=== PATIENT | male | born 1985 | race African-American/Black ===

== ENCOUNTER 2016-07-15 16:50 | Emergency (ER) | payer OTHER ==
[2016-07-15 17:00] VITALS: TEMP 98.6; BMI 44.9
--- NOTE | 2016-07-15 18:37 | PDOC ---
History of Present Illness - General Chief Complaint: Blood Sugar Problem Stated Complaint: BLOOD SUGAR PROBLEM Time Seen by Provider: 07/15/16 18:26 History Source: Patient - History of Present Illness Timing/Duration: other Associated Symptoms: denies: chest pain, fever/chills, headaches, nausea/ vomiting, shortness of breath, weakness Past History - Past Medical History Allergies/Adverse Reactions: Allergies Allergy/AdvReac Type Severity Reaction Status Date / Time No Known Allergies Allergy Verified 07/15/16 16:55 Home Medications: Ambulatory Orders Metformin HCl 1,000 mg PO BID 06/23/15 Ibuprofen [Motrin -] 80 mg PO TID #30 tablet 09/30/15 Oxycodone HCl/Acetaminophen [Percocet 10-325 mg Tablet] 1 each PO QID #20 tablet MDD 4 09/30/15 Diabetes: Yes (NIDDM) - Immunization History Immunization Up to Date: Yes - Psycho/Social/Smoking Cessation Hx Anxiety: No Suicidal Ideation: No Smoking Status: Yes Smoking History: Current every day smoker Have you smoked in the past 12 months: Yes Number of Cigarettes Smoked Daily: 10 Information on smoking cessation initiated: Yes 'Breaking Loose' booklet given: 07/15/16 Hx Alcohol Use: No Drug/Substance Use Hx: No Substance Use Type: Alcohol Review of Systems - Review of Systems Constitutional: No: Chills, Fever HEENTM: No: Blurred Vision Respiratory: No: Cough, Shortness of Breath Cardiac (ROS): No: Chest Pain ABD/GI: No: Constipated, Diarrhea, Nausea, Vomiting, Abdominal cramping : No: Dysuria *Physical Exam - Vital Signs Last Vital Signs Temp Pulse Resp BP Pulse Ox 98.6 F 82 18 152/83 100 07/15/16 16:56 07/15/16 16:56 07/15/16 16:56 07/15/16 16:56 07/15/16 16:56 - Physical Exam General Appearance: Yes: Appropriately Dressed. No: Apparent Distress HEENT: positive: Normal Voice Neck: positive: Supple Respiratory/Chest: positive: Lungs Clear, Normal Breath Sounds. negative: Respiratory Distress Cardiovascular: positive: Regular Rate, S1, S2 Gastrointestinal/Abdominal: positive: Soft. negative: Tender Integumentary: positive: Dry, Warm Neurologic: positive: Fully Oriented, Alert, Normal Mood/Affect ED Treatment Course - LABORATORY CBC & Chemistry Diagram: 07/15/16 18:40 07/15/16 19:16 Medical Decision Making - Medical Decision Making 07/15/16 18:30 30-year-old male, morbidly obese, ise-[id number] diabetic, non-compliant with medications, mostly secondary to insurance issues, went to see his outside doctor today and had refill of metformin sent to pharmacy but states he was told his blood sugar was in the 400s and sent to the ED. Patient does report of polyuria for unspecified time. Denies any other acute medical complaints at this time see exam Hyperglycemia Non-compliant w/ oral hypoglycemic Stable and well lalitha in ED -labs -IVF -?insulin -reassess 07/15/16 18:38 *DC/Admit/Observation/Transfer Diagnosis at time of Disposition: Hyperglycemia - Referrals Referrals: Stephanie Amato [Primary Care Provider] - - Patient Instructions Printed Discharge Instructions: DI for Hyperglycemia -- Adult Additional Instructions: Please follow up with your primary care provider and be sure to slat pickler your Metformin prescription that was sent in by your PCP. If you experience dizziness, vomiting, abdominal pain, difficulty breathing, weakness, confusion, or any new or worsening symptoms, please return to the ER immediately.
[2016-07-15] MEDS ORDERED: SODIUM CHLORIDE 1,000 ML IV STA (18:55)
[2016-07-15 19:01] LABS: BASOPHIL 0.8 % (0-2.0); MCH 27.4 pg (25.7-33.7); MCHC 32.5 g/dl (32.0-35.9); MEAN CELL VOLUME 84.2 fl (80-96); MEAN PLT VOLUME 8.6 fl (7.5-11.1); NEUTROPHILS 48.2 % (42.8-82.8); PLATELET COUNT 337 K/MM3 (134-434); RDW 13.8 % (11.9-15.9); WHITE BLOOD COUNT 10.3 K/mm3 (4.0-10.0)
[2016-07-15 19:08] LABS: URINE APPEARANCE CLEAR; URINE BILIRUBIN NEGATIVE (NEGATIVE); URINE COLOR LTYELLOW; URINE GLUCOSE (UA) 3+ (NEGATIVE); URINE KETONE NEGATIVE (NEGATIVE); URINE LEUK ESTERASE NEGATIVE (NEGATIVE); URINE NITRITE NEGATIVE (NEGATIVE); URINE UROBILINOGEN NEGATIVE E.U./dl (0.2-1.0)
--- NOTE | 2016-07-15 19:13 | PDOC ---
*Physical Exam - Vital Signs Last Vital Signs Temp Pulse Resp BP Pulse Ox 98.6 F 82 18 152/83 100 07/15/16 16:56 07/15/16 16:56 07/15/16 16:56 07/15/16 16:56 07/15/16 16:56 - Physical Exam Comments: 07/15/16 19:13 Sign-out received from outgoing ER provider Floresita. Pt interviewed and examined. Ancillary studies reviewed. Awaiting labs. 07/15/16 19:55 glucose 373, UA at baseline. labs otherwise unremarkable. -8 units Novolog 07/15/16 20:39 At this time the patient is asymptomatic and ready to go home. Will discharge to home with close follow up with PMD. Advised patient to pickle maker prescription for Metformin sent in by PMD. Advised patient of signs and symptoms for return to ED. Patient verbalized understanding and agrees to plan. 07/15/16 20:41 ED Treatment Course - LABORATORY CBC & Chemistry Diagram: 07/15/16 18:40 07/15/16 19:16 - ADDITIONAL ORDERS Additional order review: 07/15/16 18:40 RBC 5.20 MCV 84.2 MCHC 32.5 RDW 13.8 MPV 8.6 Neutrophils % 48.2 Lymphocytes % 41.8 H Monocytes % 7.2 Eosinophils % 2.0 Basophils % 0.8 *DC/Admit/Observation/Transfer Diagnosis at time of Disposition: Hyperglycemia - Discharge Dispostion Admit: No - Referrals Referrals: Stephanie Amato [Primary Care Provider] - - Patient Instructions Printed Discharge Instructions: DI for Hyperglycemia -- Adult Additional Instructions: Please follow up with your primary care provider and be sure to pickle maker your Metformin prescription that was sent in by your PCP. If you experience dizziness, vomiting, abdominal pain, difficulty breathing, weakness, confusion, or any new or worsening symptoms, please return to the ER immediately.
[2016-07-15 19:26] LABS: URINE BLOOD 2+ (NEGATIVE); URINE PROTEIN 3+ (NEGATIVE)
[2016-07-15 19:41] LABS: URINE RBC 9 /hpf (0-3); URINE WBC 3 /hpf (3-5)
[2016-07-15 19:54] LABS: ALBUMIN 3.9 g/dl (3.4-5.0); ALK PHOS 117 U/L (45-117); ANION GAP 7 (8-16); BILIRUBIN,TOTAL 0.6 mg/dL (0.2-1.0); CALCIUM 9.2 mg/dL (8.5-10.1); CO2 30 mmol/L (21-32); CREATININE 0.9 mg/dL (0.7-1.3); SGOT/AST 13 U/L (15-37); SGPT/ALT 29 U/L (12-78); TOT PROT 7.4 g/dl (6.4-8.2)
[2016-07-15 19:56] LABS: GLUCOSE,RANDOM 373 mg/dL (74-106)
[2016-07-15] MEDS ORDERED: INSULIN (NOVOLOG) ASPART 100 UNITS/ML 10ML VIAL SQ ONE (19:57)
[2016-07-15] MEDS ORDERED: INSULIN (NOVOLOG) ASPART 100 UNITS/ML 10ML VIAL ONE (20:12)
[2016-07-15 20:37] VITALS: BP 131/79; PULSE 86
== END 2016-07-15 20:42 | disposition home or self-care (01) ==
LOC: JER 16:50
DX: E11.65 Type 2 diabetes mellitus with hyperglycemia (principal); Z79.84 Long term (current) use of oral hypoglycemic drugs; Z91.14 Patient's other noncompliance with medication regimen
CPT/HCPCS: 36415; 80053; 81003; 81015; 85025; 99283-25

== ENCOUNTER 2016-12-19 02:58 | Emergency (ER) | payer OTHER ==
[2016-12-19 03:59] VITALS: BP 150/80; PULSE 106; TEMP 98.7; BMI 42.3
--- NOTE | 2016-12-19 05:07 | PDOC ---
History of Present Illness - General Chief Complaint: Pain, Acute Stated Complaint: RIGHT KNEE PROBLEM History Source: Patient, Family Exam Limitations: No Limitations - History of Present Illness Initial Comments: 12/19/16 05:02 Patient is a 31 year old male with h/o right knee injury c/o right knee pain s/ p fall tonight. Patient is asleep and unable to wake up to give a history. GENERAL/CONSTITUTIONAL: [No fever or chills. No weakness. No weight change.] HEAD, EYES, EARS, NOSE AND THROAT: [No change in vision. No ear pain or discharge. No sore throat.] CARDIOVASCULAR: [No chest pain or shortness of breath.] RESPIRATORY: [No cough, wheezing, or hemoptysis.] GASTROINTESTINAL: [No nausea, vomiting, diarrhea or constipation. No rectal bleeding.] GENITOURINARY: [No dysuria, frequency, or change in urination.] MUSCULOSKELETAL: (+) joint or muscle swelling or pain. No neck or back pain.] SKIN AND BREASTS: [No rash or easy bruising.] NEUROLOGIC: [No headache, vertigo, loss of consciousness, or loss of sensation.] PSYCHIATRIC: [No depression or anxiety.] ENDOCRINE: [No increased thirst. No abnormal weight change.] HEMATOLOGIC/LYMPHATIC: [No anemia, easy bleeding, or history of blood clots.] ALLERGIC/IMMUNOLOGIC: [No hives or skin allergy. No latex allergy.] GENERAL: [The patient is awake, alert, and fully oriented, in no acute distress. ] HEAD: [Normal with no signs of trauma.] EYES: [Pupils equal, round and reactive to light, extraocular movements intact, sclera anicteric, conjunctiva clear.] ENT: [Ears normal, nares patent, oropharynx clear without exudates. Moist mucous membranes.] NECK: [Normal range of motion, supple without lymphadenopathy, JVD, or masses.] LUNGS: [Breath sounds equal, clear to auscultation bilaterally. No wheezes, and no crackles.] HEART: [Regular rate and rhythm, normal S1 and S2 without murmur, rub.] ABDOMEN: [Soft, nontender, normoactive bowel sounds. No guarding, no rebound. No masses.] EXTREMITIES:decreased range of motion to right knee, no edema. No clubbing or cyanosis. No cords, erythema, or tenderness.] NEUROLOGICAL: [Cranial nerves II through XII grossly intact. Normal speech, normal gait.] PSYCH: [Normal mood, normal affect.] SKIN: [Warm, Dry, normal turgor, no rashes or lesions noted.] Past History - Past Medical History Allergies/Adverse Reactions: Allergies Allergy/AdvReac Type Severity Reaction Status Date / Time No Known Allergies Allergy Verified 12/19/16 03:57 Home Medications: Ambulatory Orders Metformin HCl 1,000 mg PO BID 06/23/15 Ibuprofen [Motrin -] 80 mg PO TID #30 tablet 09/30/15 Oxycodone HCl/Acetaminophen [Percocet 10-325 mg Tablet] 1 each PO QID #20 tablet MDD 4 09/30/15 Diabetes: Yes (NIDDM) - Immunization History Immunization Up to Date: Yes - Psycho/Social/Smoking Cessation Hx Anxiety: No Suicidal Ideation: No Smoking Status: Yes Smoking History: Never smoked Have you smoked in the past 12 months: No Number of Cigarettes Smoked Daily: 10 Information on smoking cessation initiated: No 'Breaking Loose' booklet given: 07/15/16 Hx Alcohol Use: No Drug/Substance Use Hx: No Substance Use Type: Alcohol *Physical Exam - Vital Signs Last Vital Signs Temp Pulse Resp BP Pulse Ox 98.7 F 106 H 16 150/80 100 12/19/16 03:57 12/19/16 03:57 12/19/16 03:57 12/19/16 03:57 12/19/16 03:57 Medical Decision Making - Medical Decision Making 12/19/16 05:05 Patient is a 31 year old male with h/o of right knee pain c/o xray right knee 12/19/16 07:23 calcified tendon noted will inst to take motrin and follow up with ortho I discussed the physical exam findings, ancillary test results and final diagnoses with the patient. I answered all of the patient's questions. The patient was satisfied with the care received and felt comfortable with the discharge plan and treatment plan. The Patient agrees to follow up with the primary care physician within 24-72 hours. *DC/Admit/Observation/Transfer Diagnosis at time of Disposition: Knee pain Qualifiers: Chronicity: acute Laterality: right Qualified Code(s): M25.561 - Pain in right knee - Discharge Dispostion Disposition: HOME Condition at time of disposition: Stable - Referrals Referrals: Stephanie Amato [Primary Care Provider] - Cedrick Bagley MD [Staff Physician] - - Patient Instructions Printed Discharge Instructions: DI for Knee Pain Additional Instructions: Your Discharge Instructions: You must call primary care physician within 24 hours to arrange follow-up. Return to the Emergency Department with any new, persistent or worsening symptoms, for fever, chills, SOB, dizziness or any other concerning changes that may occur. Follow-up with orthopedics
--- NOTE | 2016-12-19 11:02 | PDOC ---
Patient Follow-up (Call Back) - Post ED Follow - Up Chief Complaint: Chronic pain Condition at time of discharge: Stable Disposition at time of original discharge: HOME Reason for Call Back: Radiology (Lateral subluxation of patella noted on xray. Message left for patient on cell and home phones.)
== END 2016-12-19 07:54 | disposition home or self-care (01) ==
LOC: JER 02:58
DX: M25.561 Pain in right knee (principal); W18.39XA Other fall on same level, initial encounter; Y93.89 Activity, other specified; Y92.89 Other specified places as the place of occurrence of the external cause; Y99.8 Other external cause status
CPT/HCPCS: 73562-TC-RT; 99283-25

== ENCOUNTER 2017-09-27 07:10 | Day surgery (SDC) | payer OTHER ==
[2017-09-26 09:21] VITALS: BMI 41.5
[2017-09-27 07:27] VITALS: BP 151/84; TEMP 98.3
[2017-09-27 07:36] VITALS: PULSE 105
[2017-09-27] MEDS ORDERED: BUPIVACAINE HCL/PF 0.5% (5MG/ML) 10 ML VIAL ONE ×2 (07:36→08:01)
[2017-09-27] MEDS ORDERED: DEXAMETHASONE SOD PHOSPHATE/PF 10 MG/ML SDV ONE (07:37)
[2017-09-27] MEDS ORDERED: MIDAZOLAM HCL 2 MG/2 ML SINGLE DOSE VIAL ONE ×2 (07:41)
[2017-09-27] MEDS ORDERED: SODIUM CHLORIDE 0.9% P/F 10 ML VIAL IJ ONE (07:41)
[2017-09-27] MEDS ORDERED: LIDOCAINE 1%/EPI 1:100000 (20 ML MULTI DOSE VIAL) ONE (08:01)
--- NOTE | 2017-09-27 08:36 | HP ---
Satellite [facility] - Chief Complaint Chief Complaint: right knee pain/instability - Past Medical History Allergies/Adverse Reactions: Allergies Allergy/AdvReac Type Severity Reaction Status Date / Time No Known Allergies Allergy Verified 09/26/17 09:26 - Current Medications Current Medications: Home Medications Medication Instructions Recorded Metformin HCl 1,000 mg PO BID 06/23/15 Multivitamin [One Daily] 1 each PO BID 09/26/17 Oxycodone HCl/Acetaminophen 1 - 2 tab PO Q6H #50 tab MDD 8 09/27/17 [Percocet 5-325 mg Tablet] Satellite Physical Exam - Physical Examination Vital Signs: Vital Signs Period Temp Pulse Resp BP Sys/Cabrera Pulse Ox Last 24 Hr 98.3 F 105 20 151/84 95 General Appearance: Well Nourished, Well Developed, Alert & Oriented x3 ENT: Clear Lung: Normal air movement Heart: Regular rate & rhythm Extremities: Other (right knee- + swelling, + ttp, decr rom, + otilio, + ant draw, + pivot, nvi MRI + acl tear, mmt) Neurological: Intact, Alert, Oriented Satellite Impression/Plan - Impression/Plan Impression: right knee acl tear, mmt Operative Procedure: right knee arthroscopy with acl reconstruction using graftlink allograft, possible MMR Date to be Performed: 09/27/17
== END 2017-09-27 08:17 | disposition home or self-care (01) ==
LOC: JASU-SURG 07:10
PROVIDERS: ATTEND Orthopaedic Surgery
PROC: 0SJD4ZZ Inspection of Left Knee Joint, Percutaneous Endoscopic Approach (ICD-10-PCS; principal; 2017-09-27)
DX: Z53.8 Procedure and treatment not carried out for other reasons (principal)
CPT/HCPCS: 82962

== ENCOUNTER 2018-01-17 06:18 | Day surgery (SDC) | payer OTHER ==
[2018-01-16 12:54] VITALS: BMI 39.0
[2018-01-17] MEDS ORDERED: MIDAZOLAM HCL 2 MG/2 ML SINGLE DOSE VIAL ONE (07:22)
[2018-01-17] MEDS ORDERED: SUCCINYLCHOLINE CHLORIDE 200 MG/10 ML VIAL ONE (07:22)
[2018-01-17] MEDS ORDERED: PROPOFOL 20 ML ONE ×3 (07:22)
[2018-01-17] MEDS ORDERED: ePHEDrine SULFATE 50 MG/1 ML AMPULE ONE (07:22)
[2018-01-17] MEDS ORDERED: LIDOCAINE HCL/PF 2% SDV 5ML VIAL ONE (07:23)
[2018-01-17] MEDS ORDERED: DEXAMETHASONE SOD PHOSPHATE 4 MG/1 ML VIAL ONE (07:23)
[2018-01-17] MEDS ORDERED: PHENYLEPHRINE HCL 10 MG/1 ML SINGLE DOSE VIAL ONE (07:23)
[2018-01-17] MEDS ORDERED: ROPIVACAINE HCL 0.5% 30ML VIAL ONE (07:28)
[2018-01-17] MEDS ORDERED: ROCURONIUM BROMIDE 50 MG/5 ML VIAL ONE ×2 (08:08→08:09)
--- NOTE | 2018-01-17 08:14 | HP ---
Satellite [facility] - Chief Complaint Chief Complaint: right knee pain - Past Medical History Allergies/Adverse Reactions: Allergies Allergy/AdvReac Type Severity Reaction Status Date / Time No Known Allergies Allergy Verified 09/26/17 09:26 - Current Medications Current Medications: Home Medications Medication Instructions Recorded metFORMIN HCL [Metformin HCl] 1,000 mg PO BID 06/23/15 Multivitamin [One Daily] 1 each PO BID 09/26/17 Oxycodone HCl/Acetaminophen 1 - 2 tab PO Q6H #50 tab MDD 8 09/27/17 [Percocet 5-325 mg Tablet] [place]-3 Fatty Acids/Fish Oil [Fish 1 each PO DAILY 01/16/18 Oil 1,000 mg Capsule] Sitagliptin Phosphate [Januvia] 100 mg PO DAILY 01/16/18 [facility] Physical Exam - Physical Examination Vital Signs: Vital Signs Period Temp Pulse Resp BP Sys/Cabrera Pulse Ox Last 24 Hr 98.5 F-98.5 F 87-87 20-20 135-135/85-85 98 General Appearance: Well Nourished, Well Developed, Alert & Oriented x3 ENT: Clear Lung: Normal air movement Heart: Regular rate & rhythm Extremities: Other (right knee- + swelling, + ttp, decr rom, + otilio, +ant draw, + pivot, nvi MRI + acl rupture, mmt, medial djd) Neurological: Intact, Alert, Oriented Satellite Impression/Plan - Impression/Plan Impression: right knee internal derangement Operative Procedure: right knee arthroscopy with ACL reconstruction using graftlink Date to be Performed: 01/17/18
[2018-01-17] MEDS ORDERED: ceFAZolin SODIUM 1 GM VIAL IVPB ONE (08:18)
[2018-01-17] MEDS ORDERED: fentaNYL CITRATE 250 MCG/5 ML VIAL ONE (08:28)
--- NOTE | 2018-01-17 09:22 | OP ---
Operative Note - Note: Operative Date: 01/17/18 ([facility]) Pre-Operative Diagnosis: right knee acl rupture Operation: right knee arthroscopy with ACL reconstruction using graftlink Implants: graftlink Post-Operative Diagnosis: Same as Pre-op Surgeon: Cedrick Bagley Non Licensed Nuclear Plant Operator: Benjamin Ferro Anesthesiologist/FIELD SERVICE ENGINEER: Iraj Gregory Anesthesia: General, Local Specimens Removed: shavings Estimated Blood Loss (mls): 10 Operative Report Dictated: Yes
--- NOTE | 2018-01-17 09:32 | SPEC ---
DATE OF OPERATION: 01/17/2018 PREOPERATIVE DIAGNOSIS: Right anterior cruciate ligament tear. POSTOPERATIVE DIAGNOSIS: Right anterior cruciate ligament tear. PROCEDURE: Right anterior cruciate ligament reconstruction with GraftLink. SURGICAL ATTENDING: Cedrick Bagley MD WOOD MODEL BUILDER: SARAH Holcomb ANESTHESIA: Regional and general. CLOSURE: A GraftLink with buttons on both sides and 3-0 nylon for skin. ESTIMATED BLOOD LOSS: Negligible. COMPLICATIONS: None. CONDITION: To recovery room stable condition. DESCRIPTION OF OPERATIVE PROCEDURE: Patient taken to the operating room on January 17, 2018. General and regional anesthesia was administered by the anesthesiologist. IV Kefzol was administered prophylactically prior to the case. The right lower extremity was prepped and draped in the usual sterile fashion. The superomedial and medial and lateral infrapatellar portal sites were made with a 15 blade followed by a blunt trocar. The outflow portal was superomedially. The scope portal was the inferolateral and the working portal was the inferomedial portal. The scope was placed in the inferolateral portal and up in the suprapatellar pouch. Pouch was visualized to be clean. The medial and lateral gutters were visualized to be clean. The undersurface of the patella and trochlea were visualized to be intact. With valgus stress on the knee, the medial compartment was entered and the medial meniscus was visualized, probed and found to be intact. The medial femoral condyle was run and found to be intact as was the medial tibial plateau. In the figure-4 position, the lateral compartment was entered. The lateral meniscus was visualized, probed, found to be intact. The lateral femoral condyle was run and found to be intact as was the lateral tibial plateau. At 90 degrees, the ACL was visualized and found to be completely torn and shredded with a stump anteriorly. This was debrided using the shaver. A notchplasty was then performed, again insufficient width and height of the notch to perform the procedure. The PCL was visualized to be intact. Using the [id number] guide and an inside-out reaming with a flip cutter, a 10-mm tunnel was made in the posterior aspect of the notch with a depth of approximately 25 mm, preserving the outer cortex. Through this tunnel was passed a shuttle suture made of an Arthrex FiberStick from outside in, exiting the portal. Next, using a tibial guide, a tibial tunnel was made just anterior to the PCL to a depth of about 30 mm inside the tibia, preserving the lateral cortex. This was done by an inside-out technique using a flip cutter as well. Through this tunnel as well was passed a FiberStick suture which was used as a shuttling suture exiting the portal as well. The GraftLink graft was prepared on the back table with a button in place and the appropriate markings on the graft. Two shuttle sutures were used to pull the graft into the knee through the inferomedial portal, 1 limb up in the femoral tunnel, 1 limb down the tibial tunnel. The femoral tunnel button was hooked on the lateral cortex. The knee was cycled. The graft was toggled up into a depth of at least 20 mm. With the knee in extension, the tibial graft was toggled using a button as well on the anteromedial cortex. At this time, the knee was cycled through, going from full extension to full flexion with excellent tension of the ACL throughout and good crossing of the PCL. Sutures were cut snug. The graft was ensured to not impede on any part of the notch and throughout the range of motion found to have good tension. The incisions were all closed with 3-0 nylon interrupted horizontal mattress sutures. A sterile pressure dressing and a knee immobilizer were applied. Patient awakened from anesthesia and transferred to recovery in stable condition. Katelynn [id number]
[2018-01-17] MEDS ORDERED: KETOROLAC TROMETHAMINE 30 MG/1 ML VIAL ONE (10:00)
[2018-01-17] MEDS ORDERED: ONDANSETRON 4 MG/2 ML VIAL IVPUSH PRN (10:30)
[2018-01-17] MEDS ORDERED: LACTATED RINGERS SOLUTION 1,000 ML IV SCH (10:30)
[2018-01-17] MEDS ORDERED: oxyCODONE HCL 5 MG TABLET PO PRN ×2 (10:30)
[2018-01-17] MEDS ORDERED: KETOROLAC TROMETHAMINE 30 MG/1 ML VIAL IVPUSH ONE (10:35)
[2018-01-17] MEDS ORDERED: CEFAZOLIN 1 GM in DEXTROSE 5%-WATER - 50 ML IVPB ONE (11:00)
[2018-01-17] MEDS ORDERED: ceFAZolin SODIUM 1 GM VIAL ONE (11:39)
[2018-01-17 11:43] VITALS: TEMP 97.8
[2018-01-17] MEDS ORDERED: oxyCODONE HCL 10 MG SUSTAINED ACTING TABLET ONE (12:25)
[2018-01-17 14:32] VITALS: BP 127/75; PULSE 89
--- NOTE | 2018-01-18 14:27 | PATH ---
Surgical Pathology Report Patient Name: JENNIFER AGUDELO [facility]. Rec. #: [id number] /Age/Gender: 1985 (Age: 32) / M Account: [id number] Location: [facility] SURGICAL Taken: 01/17/2018 Received: 01/17/2018 Reported: 01/18/2018 Physicians: Cedrick Bagley M.D. Specimen(s) Received RIGHT KNEE SHAVINGS Clinical History Tear right ACL Final Diagnosis KNEE SHAVINGS, RIGHT, ACL AND MEDIAL MENISCUS REPAIR FRAGMENTS OF CARTILAGE, DENSE FIBROCONNECTIVE TISSUE, FIBROADIPOSE TISSUE, AND SYNOVIUM. Electronically Signed Prema Trivedi M.D. Gross Description Received in formalin, labeled "right knee shavings," is a 6.5 x 4.5 x 0.8 cm. aggregate of spann-yellow soft tissue fragments. A uniforms sales representative portion is submitted in one cassette. /01/17/2018 [place]/01/17/2018
== END 2018-01-17 14:20 | disposition home or self-care (01) ==
LOC: JASU-SURG 06:18
PROVIDERS: ATTEND Orthopaedic Surgery
PROC: 0MSN4ZZ Reposition Right Knee Bursa and Ligament, Percutaneous Endoscopic Approach (ICD-10-PCS; principal; 2018-01-17 08:00)
DX: S83.511A Sprain of anterior cruciate ligament of right knee, initial encounter (principal); X58.XXXA Exposure to other specified factors, initial encounter; Y93.9 Activity, unspecified; Y92.9 Unspecified place or not applicable; Y99.9 Unspecified external cause status
CPT/HCPCS: 82962; 88304-TC; 97116-GP

== ENCOUNTER 2018-03-23 22:53 | Emergency (ER) | payer OTHER ==
[2018-03-23 23:15] VITALS: BP 157/82; PULSE 84; TEMP 99.2; BMI 40.4
--- NOTE | 2018-03-23 23:34 | PDOC ---
History of Present Illness - General Chief Complaint: Sore Throat Stated Complaint: THROAT PAIN, DIFFICULTY BREATHING Time Seen by Provider: 03/23/18 23:34 History Source: Patient - History of Present Illness Initial Comments: 03/24/18 00:50 32 year old male with cough, throat pain x 4 days , as per patient with no relief in symptoms with OTC cough and fever medicine, mucinex. patient reports feeling chills. pmhx: NIDDM, 03/24/18 00:51 Past History - Past Medical History Allergies/Adverse Reactions: Allergies Allergy/AdvReac Type Severity Reaction Status Date / Time No Known Allergies Allergy Verified 03/23/18 23:11 Home Medications: Ambulatory Orders metFORMIN HCL [Metformin HCl] 1,000 mg PO BID 06/23/15 Multivitamin [One Daily] 1 each PO BID 09/26/17 [place]-3 Fatty Acids/Fish Oil [Fish Oil 1,000 mg Capsule] 1 each PO DAILY Sitagliptin Phosphate [Januvia] 100 mg PO DAILY 01/16/18 Oxycodone HCl/Acetaminophen [Percocet 5-325 mg Tablet] 1 - 2 tab PO Q6H #50 tab MDD 8 01/17/18 Albuterol Sulfate Inhaler - [Ventolin HFA Inhaler -] 1 - 2 inh PO Q4H PRN #1 inhaler 03/24/18 Amoxicillin/Potassium Clav [Augmentin 875-125 Tablet] 1 each PO BID #20 tablet 03/24/18 Benzonatate [Tessalon Pearls -] 100 mg PO TID PRN #14 capsule 03/24/18 Ibuprofen 600 mg PO QID PRN #20 tablet 03/24/18 Anemia: No Asthma: No Cancer: No Cardiac Disorders: No CVA: No COPD: No CHF: No Dementia: No Diabetes: Yes (NIDDM) GI Disorders: No Disorders: No HTN: No Hypercholesterolemia: No Liver Disease: No Seizures: No Thyroid Disease: No - Surgical History Orthopedic Surgery: Yes (right knee surgery) - Immunization History Immunization Up to Date: Yes - Suicide/Smoking/Psychosocial Hx Smoking Status: Yes Smoking History: Never smoked Have you smoked in the past 12 months: Yes Number of Cigarettes Smoked Daily: 10 'Breaking Loose' booklet given: 01/17/18 Hx Alcohol Use: Yes (RARE) Drug/Substance Use Hx: No Substance Use Type: None Hx Substance Use Treatment: No *Physical Exam - Vital Signs Last Vital Signs Temp Pulse Resp BP Pulse Ox 99.2 F 84 18 157/82 98 03/23/18 23:08 03/23/18 23:08 03/23/18 23:08 03/23/18 23:08 03/23/18 23:08 - Physical Exam General Appearance: Yes: Appropriately Dressed HEENT: positive: Tonsillar Erythema (with edema. no kissing tonsils) Respiratory/Chest: positive: Rhonchi. negative: Respiratory Distress, Accessory Muscle Use Cardiovascular: positive: Regular Rhythm, Regular Rate Gastrointestinal/Abdominal: positive: Normal Bowel Sounds, Soft Extremity: positive: Normal Capillary Refill, Normal Inspection, Normal Range of Motion Integumentary: positive: Normal Color, Dry, Warm Neurologic: positive: Fully Oriented, Alert, Normal Mood/Affect Medical Decision Making - Medical Decision Making 03/24/18 00:54 A: pharyngitis/ bronchitis P; chest xray rapid strep negative *DC/Admit/Observation/Transfer Diagnosis at time of Disposition: Bronchitis Pharyngitis Qualifiers: Pharyngitis/tonsillitis etiology: unspecified etiology Qualified Code(s): J02.9 - Acute pharyngitis, unspecified - Discharge Dispostion Disposition: HOME - Prescriptions Prescriptions: Albuterol Sulfate Inhaler - [Ventolin HFA Inhaler -] 1 - 2 inh PO Q4H PRN #1 inhaler PRN Reason: Cough Amoxicillin/Potassium Clav [Augmentin 875-125 Tablet] 1 each PO BID #20 tablet Benzonatate [Tessalon Pearls -] 100 mg PO TID PRN #14 capsule PRN Reason: Cough Ibuprofen 600 mg PO QID PRN #20 tablet PRN Reason: Moderate Pain - Referrals Referrals: Stephanie Amato [Primary Care Provider] - Call tomorrow - Patient Instructions Printed Discharge Instructions: Acute Bronchitis Additional Instructions: drink plenty of fluids take Augmentin as prescribed you may use albuterol inhaler every 4 hours as needed for cough follow up with your doctor as soon as possible return to the ER if symptoms worsen. - Post Discharge Activity Forms/Work/School Notes: Back to Work
[2018-03-23] MEDS ORDERED: IBUPROFEN 600 MG TABLET (FP) PO ONE (23:50)
[2018-03-24] MEDS ORDERED: ALBUTEROL SO4 2.5/IPRATROPIUM 0.5 INH SOL 3 ML VIAL.NEB. NEB ONE ×2 (00:50→01:10)
[2018-03-24] MEDS ORDERED: AMOX TR/POT CLAV 875MG/125MG TABLETS (FP) PO ONE (00:50)
[2018-03-24] MEDS ORDERED: IBUPROFEN 100 MG/5 ML UNIT DOSE CUPS PO ONE (01:07)
[2018-03-24] MEDS ORDERED: AMOX TR/POT CLAV 875MG/125MG TABLETS (FP) ONE (01:10)
[2018-03-24] MEDS ORDERED: IBUPROFEN 100 MG/5 ML UNIT DOSE CUPS ONE (01:10)
== END 2018-03-24 01:28 | disposition home or self-care (01) ==
LOC: JER 22:53
PROC: 3E0F7GC Introduction of Other Therapeutic Substance into Respiratory Tract, Via Natural or Artificial Opening (ICD-10-PCS; principal; 2018-03-23)
DX: J04.0 Acute laryngitis (principal); J02.9 Acute pharyngitis, unspecified; E11.9 Type 2 diabetes mellitus without complications; Z79.84 Long term (current) use of oral hypoglycemic drugs
CPT/HCPCS: 71046-TC-FY; 87070; 87430; 94640; 99281-25; J7620